=== PATIENT | male | born 1995 | race Caucasian/White ===

== ENCOUNTER 2016-06-25 21:09 | Emergency (ER) | payer OTHER ==
[~2016-06-25] VITALS: Ht 172.7 cm; Wt 95.5 kg
[2016-06-25 21:13] VITALS: BP 101/87; TEMP 100.7
[2016-06-25] MEDS ORDERED: ZOFRAN8 MG PO (22:06)
[2016-06-25 22:09] LABS: CALCIUM 10.6 mg/dL (8.4-10.2); CREATININE, serum 0.94 mg/dL (0.66-1.25); POTASSIUM 3.9 mmol/L (3.4-5.0)
[2016-06-25 23:14] VITALS: PULSE 102
== END 2016-06-25 23:14 | disposition home or self-care (01) ==
LOC: COL.ER 21:09
PROVIDERS: Emergency Medicine
DX: E86.9 Volume depletion, unspecified (principal); R11.10 Vomiting, unspecified; R19.7 Diarrhea, unspecified
CPT/HCPCS: J2405; J7030